=== PATIENT | male | born 1945 | race Caucasian/White ===

== ENCOUNTER 2019-12-10 06:49 | Day surgery (SDC) | payer MEDICARE, BC ==
[~2019-12-10 06:49] MED LIST: Lactated Ringers 1,000 ML IV SCH; Lidocaine 1%/Sod Bicarbonate in NS 8.4% 1 ML Syringe IDERM PRN; Sodium Chloride 0.9% 10 ML Syringe FLUSH PRN
[2019-12-10 07:14] VITALS: PULSE 63
--- NOTE | 2019-12-10 07:23 | PCM.PREANE ---
Preanesthetic Assessment - Procedure Proposed Procedure: Ear, nose, neck excisions / biopsies - Anesthesia/Transfusion/Family Hx Anesthesia History: Prior Anesthesia Without Reaction Family History of Anesthesia Reaction: No Transfusion History: No Prior Transfusion(s) - Review of Systems General: No Symptoms Pulmonary: Cough Cardiovascular: No Symptoms Gastrointestinal: No Symptoms Neurological: No Symptoms Other: Reports: None - Physical Assessment NPO Status Date: 12/09/19 NPO Status Time: 18:00 Vital Signs: Last Vital Signs Temp 97.5 F 12/10/19 07:00 Pulse 63 12/10/19 07:00 Resp 16 12/10/19 07:00 BP 127/92 H 12/10/19 07:00 Pulse Ox 96 12/10/19 07:00 Height: 1.7 m Weight: 94.801 kg ASA Class: 3 Mental Status: Alert & Oriented x3 Airway Class: Mallampati = 2 Dentition: Reports: Port Protection(s), Missing Tooth/Teeth Thyro-Mental Finger Breadths: 3 Mouth Opening Finger Breadths: 3 ROM/Head Extension: Limited/Partial Lungs: Clear to Auscultation, Normal Respiratory Effort - Lab Values: Laboratory Last Values SARS Virus RNA (PCR) Negative (NEGATIVE) 12/09/19 08:57 - Allergies Allergies/Adverse Reactions: Allergies Allergy/AdvReac Type Severity Reaction Status Date / Time lisinopril Allergy Cough Verified 12/09/19 14:28 rosuvastatin calcium Allergy Other Verified 12/09/19 14:28 [From Crestor] - Acknowledgements Anesthesia Type Planned: MAC Pt an Appropriate Candidate for the Planned Anesthesia: Yes Alternatives and Risks of Anesthesia Discussed w Pt/Guardian: Yes Pt/Guardian Understands and Agrees with Anesthesia Plan: Yes PreAnesthesia Questionnaire Cardiovascular History: Reports: Afib, High Cholesterol, Other (See Below) Other Cardiovascular History: cardioversion x2 Respiratory History: Reports: Other (See Below) Other Respiratory History: snoring, sleep apnea Genitourinary History: Reports: Other (See Below) Other Genitourinary History: erectile dysfunction Musculoskeletal History: Reports: Gout, Osteoarthritis, Other (See Below) Other Musculoskeletal History: carpal tunnel syndrome Endocrine/Metabolic History: Reports: Obesity/BMI 30+ Oncologic (Cancer) History: Reports: Squamous Cell Carcinoma Dermatologic History: Reports: None - Infectious Disease History Infectious Disease History: Reports: Shingles - Past Surgical History HEENT Surgical History: Reports: Cataract Surgery Musculoskeletal Surgical History: Reports: Arthroscopic Knee, Carpal Tunnel ( Bilateral), Knee Replacement - SUBSTANCE USE Smoking Status *Q: Current Every Day Smoker Recreational Drug Use History: No - HOME MEDS Home Medications: Home Meds Aspirin 81 mg PO DAILY 12/09/19 [History] Fish Oil/[place]-3 Fatty Acids [Fish Oil 1,000 MG] 1 gm PO DAILY 12/09/19 [History ] Losartan [Cozaar] 100 mg PO DAILY 12/09/19 [History] Multivitamin 1 tab PO DAILY 12/09/19 [History] Psyllium Husk [Metamucil] 1 dose PO DAILY PRN 12/09/19 [History] Warfarin Sodium [Jantoven] 5 mg PO MO 12/09/19 [History] Warfarin Sodium [Jantoven] 7.5 mg PO SUTUWETHFRSA 12/09/19 [History] allopurinoL [Zyloprim] 200 mg PO DAILY 12/09/19 [History] atorvaSTATin [Lipitor] 80 mg PO DAILY 12/09/19 [History] dilTIAZem HCL [Cartia Xt] 180 mg PO DAILY 12/09/19 [History] hydroCHLOROthiazide [Hydrochlorothiazide] 12.5 mg PO DAILY 12/09/19 [History] - CURRENT (IN HOUSE) MEDS Current Meds: Current Medications Lactated Ringer's (Ringers, Lactated) 1,000 mls @ 125 mls/hr IV ASDIRECTED BROOKE Stop: 12/10/19 23:00 Last Admin: 12/10/19 07:07 Dose: 125 mls/hr Lidocaine/Sodium Bicarbonate (Buffered Lidocaine 1% In Ns 8.4%) 0.25 ml IDERM ONETIME PRN PRN Reason: Prior to IV Start Stop: 12/10/19 18:00 Last Admin: 12/10/19 07:06 Dose: 0.25 ml Sodium Chloride (Saline Flush) 10 ml FLUSH ASDIRECTED PRN PRN Reason: Keep Vein Open Stop: 12/10/19 18:00
[2019-12-10] MEDS ORDERED: Lidocaine 1% with EPINEPHrine 1:100,000 20 ML MDV ONE (07:31)
[2019-12-10] MEDS ORDERED: fentaNYL 100 MCG/2 ML SDV ONE (07:42)
[2019-12-10] MEDS ORDERED: Propofol 200 MG/20 ML SDV ONE ×2 (07:42→09:04)
[2019-12-10] MEDS ORDERED: Midazolam 1 MG/ML 2 ML SDV ONE (07:42)
[2019-12-10] MEDS ORDERED: Lidocaine 1% 4 ML ONE (07:44)
[2019-12-10] MEDS: Lidocaine 1% 50 ML MDV ONE ×2 (08:09→08:56)
[2019-12-10] MEDS ORDERED: ePHEDrine Sulfate/0.9% NaCl/Pf 25 MG/5 ML SYRINGE IV ONE (08:36)
[2019-12-10] MEDS: Bacitracin Oint 15 GM Tube ONE ×2 (08:56→09:34)
--- NOTE | 2019-12-10 09:44 | PCM.OPNOTE ---
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
[2019-12-10 09:52] VITALS: BP 124/88
--- NOTE | 2019-12-10 09:52 | PCM48HPAN ---
Post Anesthesia Note - EVALUATION WITHIN 48HRS OF ANESTHETIC Vital Signs in Normal Range: Yes Patient Participated in Evaluation: Yes Respiratory Function Stable: Yes Airway Patent: Yes Cardiovascular Function Stable: Yes Hydration Status Stable: Yes Pain Control Satisfactory: Yes Nausea and Vomiting Control Satisfactory: Yes Mental Status Recovered: Yes Vital Signs: Last Vital Signs Temp 97.0 F 12/10/19 09:43 Pulse 63 12/10/19 09:43 Resp 14 12/10/19 09:43 BP 124/88 12/10/19 09:43 Pulse Ox 99 12/10/19 09:43
--- NOTE | 2019-12-11 10:55 | OR ---
DATE OF OPERATION: 12/10/2019 SURGEON: Jem Nance MD PREOPERATIVE DIAGNOSIS: 1. Squamous cell carcinoma in situ, helix of the left ear. 2. Skin lesion, helix of the right ear. POSTOPERATIVE DIAGNOSIS: 1. Squamous cell carcinoma in situ, helix of the left ear. 2. Skin lesion, helix of the right ear. OPERATION PERFORMED: 1. Wedge resection under frozen section control of the skin cancer of the helix of the left ear with chondrocutaneous advancement flap. 2. 3 mm punch biopsy, helix, right ear. finding are lesions and margins are 2.5 cm ESTIMATED BLOOD LOSS: About 15 mL. ANESTHESIA: IV sedation with local anesthetic 1% Xylocaine without epinephrine. DESCRIPTION OF PROCEDURE: The patient was taken to the operating room, placed in a supine position, connected to the monitoring equipment, and given IV sedation. The left ear and helix of the right ear were prepped with Betadine, draped off in a sterile fashion. The ear block was then placed at the base of the ear with 1% Xylocaine on the left ear. A marking pen was then used to lillie the incision on the lesion, and a rectangle was removed from the helix of the ear. This was marked with a marking suture on the inferior margin, sent to frozen section. It showed that the inferior and superior margins were both positive. Margins were then re - taken on the inferior margin and another superior margin with the tumor side marked. It was sent to Pathology and the margins were clear. An incision was made along the helix of the ear, both superior and inferior. An advancement flap was then made with the Burow's triangle taken out on the upper end of the incision. The cartilage was re-approximated with interrupted 3-0 Vicryl suture. On the backside, the skin was closed with interrupted 4-0 Prolene suture. The anterior surface of the skin was closed with interrupted 5-0 Prolene, and the helix of the ear was approximated. A good cosmetic result was obtained. It was checked and excellent hemostasis and was then prepped with bacitracin ointment. Attention was then directed to the helix of the right ear, which was prepped with Betadine, anesthetized with 1% Xylocaine, and a 3 mm punch biopsy was obtained of that lesion. It was closed with one 5-0 Prolene suture. Sterile dressing placed. The patient tolerated the procedure and sent to the recovery room in a stable condition. MMODAL /[id number] YANETH
== END 2019-12-10 10:25 | disposition home or self-care (01) ==
LOC: JD.SDS 06:49
PROVIDERS: ATTEND Surgery
DX: D04.22 Carcinoma in situ of skin of left ear and external auricular canal (principal); L57.0 Actinic keratosis; E78.00 Pure hypercholesterolemia, unspecified; E66.9 Obesity, unspecified; I10 Essential (primary) hypertension; F17.210 Nicotine dependence, cigarettes, uncomplicated; I48.20 Chronic atrial fibrillation, unspecified; Z11.59 Encounter for screening for other viral diseases; Z88.8 Allergy status to other drugs, medicaments and biological substances; Z79.01 Long term (current) use of anticoagulants; Z79.82 Long term (current) use of aspirin; Z79.899 Other long term (current) drug therapy; Z68.33 Body mass index [BMI] 33.0-33.9, adult
CPT/HCPCS: 14060; 36415; 69100; 85610; 85730; 88305; 88331; 93005; A9270; J0171; J2001; J2250; J2704; J3010; J7120; U0002; 00120

== ENCOUNTER 2020-05-22 13:20 | Emergency (ER) | payer MEDICARE, BC ==
[2020-05-22 14:03] VITALS: BP 175/87; PULSE 70
--- NOTE | 2020-05-22 14:55 | EDM.PDOC ---
ED HPI GENERAL MEDICAL PROBLEM - General Chief Complaint: Skin Complaint Stated Complaint: SKIN COMPLAINT/FACE RASH Time Seen by Provider: 05/22/20 14:14 Source of Information: Reports: Patient, RN Notes Reviewed History Limitations: Reports: No Limitations - History of Present Illness INITIAL COMMENTS - FREE TEXT/NARRATIVE: Patient is a 74-year-old male who presents to the ED for the evaluation of his ongoing facial rash. Patient notes that this was present back in March, and he has been doctoring for this since then. He notes that this seems to be in the distribution of his CPAP mask. He has been seen by his regular provider, Dr. Philip and was given some hydrocortisone topical steroids for management, and was seen by his director facilities maintenance who thought maybe this could be his water pill causing issues. He notes that he has been taken off of his water pill, and he did not think that the hydrocortisone has been working, so he ceased use of this. He has been using topical Benadryl cream, and calamine lotion, he states it helps for a brief amount of time but then seems to not work anymore. He does note that he uses a commercial CPAP stone cleaner, and and he uses this daily to clean his mask. He notes that he did have some increased itching to his face yesterday, so he took a hot washcloth, and rubbed his face in the area of itching, he states that this made it feel a little bit better, but then he noticed some clear drainage after he got done rubbing his face. The rash in question is in the distribution of a CPAP mask on his face. Patient denies any other sick-like symptoms, fever/chills, cough/shortness of breath, nausea/vomiting/diarrhea. - Related Data Allergies Allergy/AdvReac Type Severity Reaction Status Date / Time lisinopril Allergy Cough Verified 12/09/19 14:28 rosuvastatin calcium Allergy Other Verified 12/09/19 14:28 [From Crestor] Home Meds: Home Meds Aspirin 81 mg PO DAILY 12/09/19 [History] Fish Oil/[place]-3 Fatty Acids [Fish Oil 1,000 MG] 1 gm PO DAILY 12/09/19 [History] Losartan [Cozaar] 100 mg PO DAILY 12/09/19 [History] Multivitamin 1 tab PO DAILY 12/09/19 [History] Psyllium Husk [Metamucil] 1 dose PO DAILY PRN 12/09/19 [History] Warfarin Sodium [Jantoven] 5 mg PO MO 12/09/19 [History] Warfarin Sodium [Jantoven] 7.5 mg PO SUTUWETHFRSA 12/09/19 [History] allopurinoL [Zyloprim] 200 mg PO DAILY 12/09/19 [History] atorvaSTATin [Lipitor] 80 mg PO DAILY 12/09/19 [History] dilTIAZem HCL [Cartia Xt] 180 mg PO DAILY 12/09/19 [History] hydroCHLOROthiazide [Hydrochlorothiazide] 12.5 mg PO DAILY 12/09/19 [History] predniSONE 20 mg PO ASDIRECTED #15 tab 05/22/20 [Rx] Past Medical History Cardiovascular History: Reports: Afib, High Cholesterol, Other (See Below) Other Cardiovascular History: cardioversion x2 Respiratory History: Reports: Other (See Below) Other Respiratory History: snoring, sleep apnea Genitourinary History: Reports: Other (See Below) Other Genitourinary History: erectile dysfunction Musculoskeletal History: Reports: Gout, Osteoarthritis, Other (See Below) Other Musculoskeletal History: carpal tunnel syndrome Endocrine/Metabolic History: Reports: Obesity/BMI 30+ Oncologic (Cancer) History: Reports: Squamous Cell Carcinoma - Infectious Disease History Infectious Disease History: Reports: Shingles - Past Surgical History HEENT Surgical History: Reports: Cataract Surgery Musculoskeletal Surgical History: Reports: Arthroscopic Knee, Carpal Tunnel (Bilateral), Knee Replacement Social & Family History - Caffeine Use Caffeine Use: Reports: Coffee ED ROS GENERAL - Review of Systems Review Of Systems: Comprehensive ROS is negative, except as noted in HPI. ED EXAM, SKIN/RASH Exam: See Below Exam Limited By: No Limitations General Appearance: Alert, WD/WN, No Apparent Distress Eye Exam: Bilateral Eye: Normal Inspection Respiratory/Chest: No Respiratory Distress, Lungs Clear, Normal Breath Sounds, No Accessory Muscle Use, Chest Non-Tender Cardiovascular: Normal Peripheral Pulses, Regular Rate, Rhythm, No Murmur Peripheral Pulses: 2+: Radial (L), Radial (R) Extremities: Normal Inspection, Normal Capillary Refill Neurological: Alert, Oriented, Normal Cognition, No Motor/Sensory Deficits Psychiatric: Normal Affect, Normal Mood Skin: Warm, Dry, Normal Color, Rash (Dry, itchy, erythematous, crusting lesions to the patient's mid face, in the distribution of the CPAP mask. The worst areas seem to be over the bridge of the nose, and into the inner canthal folds of the eyes.) Location, Skin: Face Course - Vital Signs Last Recorded V/S: Last Vital Signs Temp 97.8 F 05/22/20 13:58 Pulse 70 05/22/20 13:58 Resp 16 05/22/20 13:58 BP 175/87 H 05/22/20 13:58 Pulse Ox 98 05/22/20 13:58 - Re-Assessments/Exams Free Text/Narrative Re-Assessment/Exam: 05/22/20 14:54 Patient presents the ED for evaluation of his ongoing facial rash. I do believe this might be an ongoing allergic reaction, possibly to some of the call center associate in his commercial CPAP machine. He will be given a course of steroids for management of this, and we will tell him to use topical bacitracin to his facial wounds, to provide further moisturization and to help clear the wounds on his face. I will recommend that he clean his CPAP machine on a daily basis by himself, and cease use of the commercial CPAP cleaning machine. Departure - Departure Time of Disposition: 14:55 Disposition: Home, Self-Care 01 Condition: Good Clinical Impression: Rash of face Allergic reaction to chemical substance Qualifiers: Encounter type: initial encounter Injury intent: accidental or unintentional Qualified Code(s): T65.91XA - Toxic effect of unspecified substance, accidental (unintentional), initial encounter - Discharge Information *PRESCRIPTION DRUG MONITORING PROGRAM REVIEWED*: No *COPY OF PRESCRIPTION DRUG MONITORING REPORT IN PATIENT DENA: No Prescriptions: predniSONE 20 mg PO ASDIRECTED #15 tab Instructions: Contact Dermatitis, [id number] Referrals: PCP,None [Primary Care Provider] - Additional Instructions: You were evaluated in the ER today for your ongoing facial rash. It is likely that the stone cleaner in your commercial CPAP stone cleaner could be causing some sort of allergic reaction on your face. I would recommend that you cease use of this CPAP stone cleaner, and try cleaning your CPAP with just warm soapy water on a daily basis, to see if this helps clear the rash up. You have been given a prescription of steroids, please take as directed until gone for further management of the rash, it is recommended that you use topical bacitracin or triple antibiotic ointment to the areas on your face, to provide further moisturization, and to help heal the wounds topically. Please try to avoid itching or scratching these areas, to prevent further aggravation. Recommend you follow-up with Dr. Philip, sometime next week to make sure that your rash is clearing rather than getting worse. Please return to the ER at any time if your symptoms change or worsen. Sepsis Event Note (ED) - Evaluation Sepsis Screening Result: No Definite Risk - Focused Exam Vital Signs: Vital Signs Temp Pulse Resp BP Pulse Ox 05/22/20 13:58 97.8 F 70 16 175/87 H 98
== END 2020-05-22 15:11 | disposition home or self-care (01) ==
LOC: JD.ED 13:20
DX: T65.891A Toxic effect of other specified substances, accidental (unintentional), initial encounter (principal); M10.9 Gout, unspecified; E66.9 Obesity, unspecified; E78.00 Pure hypercholesterolemia, unspecified; I48.91 Unspecified atrial fibrillation; Z88.8 Allergy status to other drugs, medicaments and biological substances; Z79.82 Long term (current) use of aspirin; Z79.899 Other long term (current) drug therapy; Z68.33 Body mass index [BMI] 33.0-33.9, adult
CPT/HCPCS: 99283